=== PATIENT | female | born 1935 | race Caucasian/White ===

== ENCOUNTER 2020-09-28 06:22 | Emergency (ER) | payer MEDICARE ==
[~2020-09-28] VITALS: Ht 160 cm; Wt 65.2 kg
[~2020-09-28 06:22] MED LIST: APIX5TAB PO; ASCO500T9 PO; ASPI-650 PO; CEFD300C37 PO; DIGO250T3 PO; DOXY100T23 PO; FURO40TA6 PO; HYDR25TA6 PO; LEVO75TA5 PO; MELO15TA24 PO; METO50TA82 PO; POTA20TA14 PO; POTA20TA6 PO; RAMI5CAP57 PO; SIMV10TA18 PO; THIA100T67 PO
--- NOTE | 2020-09-28 06:59 | NUR ---
KEITH GIVEN REPORT
[2020-09-28] MEDS ORDERED: SODIUM CHLORIDE FLUSH 10ML SYR IVF ONE (07:00)
--- NOTE | 2020-09-28 07:17 | NUR ---
PT RECLINED IN BED, RESPIRATIONS EVEN AND UNLABORED ON RA. PT C/O SOB OFF AND ON ALL NIGHT, AND CONSTANT SINCE 0200 THIS AM. IV START, LABS DRAWN. PT PLACED ON NC FOR COMFORT AND 97% ON 2L NC VERSUS 91% ON RA.
[2020-09-28 07:49] LABS: BASOPHILS % (AUTO) 1 % (0-1); EOSINOPHILS % (AUTO) 1 % (1-7); LYMPHOCYTES % (AUTO) 24 % (22-44); MEAN CORPUSCULAR HEMOGLOBIN 30.2 pg (27.0-34.8); MEAN CORPUSCULAR HGB CONC 33.5 g/dL (32.4-35.8); MEAN PLATELET VOLUME 8.8 fL (7.4-10.4); MONOCYTES % (AUTO) 5 % (2-9); NEUTROPHILS % (AUTO) 69 % (42-75); PLATELET COUNT 189 x10^3/uL (130-400); RED CELL DISTRIBUTION WIDTH 13.8 % (9.6-15.2)
[2020-09-28 07:50] LABS: MD NO
[2020-09-28 08:01] LABS: ALANINE AMINOTRANSFERASE 39 U/L (12-78); ALBUMIN 3.6 g/dL (3.4-5.0); ANION GAP 7 mmol/L (5-15); CALCIUM 8.9 mg/dL (8.5-10.1); CHLORIDE 108 mmol/L (98-107); CREATININE 0.78 mg/dL (0.55-1.02)
[2020-09-28 08:05] LABS: ALKALINE PHOSPHATASE 51 U/L (45-117); BILIRUBIN,TOTAL 0.9 mg/dL (0.2-1.0); TOTAL PROTEIN 7.1 g/dL (6.4-8.2); TROPONIN I < 0.015 ng/mL (0.000-0.045)
--- NOTE | 2020-09-28 08:18 | NUR ---
PT LAYING BACK IN BED, NC IN PLACE. NO WOB NOTED. NAD NOTED. AWAITING FINAL LAB VALUE FOR RECHECK.
[2020-09-28] MEDS ORDERED: FUROSEMIDE 40 MG TABLET PO ONE (09:00)
[2020-09-28] MEDS ORDERED: METOPROLOL TARTRATE 50 MG TAB PO ONE (09:00)
[2020-09-28] MEDS ORDERED: METOPROLOL TARTRATE 50 MG TAB ONE (09:02)
[2020-09-28] MEDS ORDERED: FUROSEMIDE 40 MG TABLET ONE (09:02)
[2020-09-28] MEDS ORDERED: METOPROLOL TARTRATE 25 MG TAB ONE (09:03)
--- NOTE | 2020-09-28 09:10 | NUR ---
PLAN FOR PT TO RECEIVE PO MEDS THEN MONITOR X1 HOUR. PT AGREES WITH PLAN. DOES NOT WANT TO BE ADMITTED. NAD NOTED AT THIS TIME.
--- NOTE | 2020-09-28 09:45 | NUR ---
PT AMBULATES WELL TO BATHROOM INDEPENDENTLY. NAD NOTED AT THIS TIME.
--- NOTE | 2020-09-28 10:32 | NUR ---
DISCUSSION WITH DR JUNG REGARDING PT'S VS. DR JUNG TO CONSULT CARDIOLOGY REGARDING PT'S CURRENT STATE AND RX. ACCORDING TO DC PAPERWORK FROM PT'S LAST ADMISSION, SHE IS DUE TO A PSYCHOLOGY FELLOW VISIT. PT EDUCATED ON INCENTIVE SPIROMETER USE. NAD NOTED AT THIS TIME. RESPIRATIONS EVEN AND UNLABORED ON RA.
[2020-09-28 11:26] VITALS: BP 143/114
== END 2020-09-28 11:44 | disposition home or self-care (01) ==
LOC: ED 06:45
DX: I48.20 Chronic atrial fibrillation, unspecified (principal); I11.0 Hypertensive heart disease with heart failure; I50.9 Heart failure, unspecified; R06.00 Dyspnea, unspecified; J44.9 Chronic obstructive pulmonary disease, unspecified
CPT/HCPCS: 36415; 71045; 80053; 80162; 83880; 84484; 85025; 93005; 99285

== ENCOUNTER 2020-10-22 08:30 | Inpatient (IN) | payer MEDICARE ==
[~2020-10-22] VITALS: Ht 160 cm; Wt 63.3 kg
[~2020-10-22 08:30] MED LIST changes: +ASPI-1026 PO; -ASPI-650 PO
[2020-10-22] MEDS ORDERED: SODIUM CHLORIDE 0.9% 1,000 ML IV ONE (09:30)
[2020-10-22] MEDS ORDERED: METO50TA82 PO (09:47)
[2020-10-22] MEDS ORDERED: MAGN400T36 PO (09:51)
[2020-10-22] MEDS ORDERED: VIT D3 PO (09:51)
[2020-10-22] MEDS ORDERED: [UNRECOGNIZED DRUG - OTHER] PO (09:53)
[2020-10-22 09:59] LABS: ANION GAP 8 mmol/L (5-15); CALCIUM 8.8 mg/dL (8.5-10.1); CHLORIDE 107 mmol/L (98-107); CREATININE 0.79 mg/dL (0.55-1.02)
[2020-10-22] MEDS ORDERED: DIPHENHYDRAMINE 50 MG/ML, 1ML IVPush PRN (10:00)
[2020-10-22 10:40] VITALS: BP 144/86
[2020-10-22 10:42] LABS: BASOPHILS % (AUTO) 1 % (0-1); EOSINOPHILS % (AUTO) 2 % (1-7); LYMPHOCYTES % (AUTO) 34 % (22-44); MEAN CORPUSCULAR HEMOGLOBIN 30.1 pg (27.0-34.8); MEAN CORPUSCULAR HGB CONC 33.9 g/dL (32.4-35.8); MONOCYTES % (AUTO) 7 % (2-9); NEUTROPHILS % (AUTO) 55 % (42-75); PLATELET COUNT 181 x10^3/uL (130-400); RED BLOOD COUNT 4.49 x10^6/uL (3.82-5.3); RED CELL DISTRIBUTION WIDTH 14.7 % (9.6-15.2)
[2020-10-22 10:43] LABS: MD NO
[2020-10-22] MEDS ORDERED: PROPOFOL 10 MG/ML, 50ML ONE (10:53)
[2020-10-22] MEDS ORDERED: SODIUM CHLORIDE 0.9% 1,000 ML IV SCH (11:00)
[2020-10-22] MEDS ORDERED: DIPHENHYDRAMINE 50 MG/ML, 1ML ONE (11:08)
[2020-10-22] MEDS ORDERED: FENTANYL PF 100 MCG/2ML ONE (13:52)
[2020-10-22] MEDS ORDERED: MIDAZOLAM 1 MG/ML, 5ML ONE (13:52)
[2020-10-22] MEDS ORDERED: LIDOCAINE 2%, 20ML ONE (13:52)
[2020-10-22] MEDS ORDERED: VERAPAMIL 2.5 MG/ML, 2ML ONE (13:53)
[2020-10-22] MEDS ORDERED: HEPARIN 1,000 UNITS/ML, 10ML ONE (13:53)
[2020-10-22] MEDS ORDERED: FUROSEMIDE 40 MG/4 ML IV ONE (15:30)
[2020-10-22] MEDS ORDERED: FURO-92 PO (15:46)
[2020-10-22 19:22] VITALS: BP 151/91
[2020-10-22 19:52] VITALS: BP 132/81
[2020-10-22] MEDS: METOPROLOL TARTRATE 25 MG TAB PO SCH (21:19)
[2020-10-22] MEDS: SIMVASTATIN 10 MG TABLET PO SCH (21:19)
[2020-10-23] VITALS (10 sets, daily range): BP systolic 116–148; BP diastolic 58–95
[2020-10-23] MEDS: SODIUM CHLORIDE 0.9% 1,000 ML IV SCH ×2 (00:11→13:00)
[2020-10-23] MEDS: METOPROLOL TARTRATE 25 MG TAB PO SCH ×3 (04:54→21:30)
[2020-10-23] MEDS: LEVOTHYROXINE 75 MCG TABLET PO SCH ×2 (05:35→16:18)
[2020-10-23] MEDS: POTASSIUM CHLORIDE 20 MEQ PACKET PO SCH ×2 (08:00→16:18)
[2020-10-23] MEDS ORDERED: FUROSEMIDE 40 MG TABLET PO SCH (09:00)
[2020-10-23] MEDS: MELOXICAM 15 MG TABLET PO SCH (09:05)
[2020-10-23] MEDS: DIGOXIN 0.25 MG TABLET PO SCH (09:07)
[2020-10-23] MEDS: MAGNESIUM OXIDE 400 MG TABLET PO SCH (09:07)
[2020-10-23] MEDS: RAMIPRIL 5 MG CAP PO SCH (09:07)
[2020-10-23] MEDS ORDERED: FENTANYL PF 100 MCG/2ML ONE (11:44)
[2020-10-23] MEDS ORDERED: MIDAZOLAM 1 MG/ML, 2ML ONE (11:44)
[2020-10-23] MEDS ORDERED: PROPOFOL 10 MG/ML, 20ML ONE (12:13)
[2020-10-23] MEDS ORDERED: ATROPINE SYRINGE 0.1 MG/ML, 10ML IVPush PRN (21:30)
[2020-10-23] MEDS: SIMVASTATIN 10 MG TABLET PO SCH (21:47)
[2020-10-24 04:29] LABS: BASOPHILS % (AUTO) 1 % (0-1); EOSINOPHILS % (AUTO) 3 % (1-7); LYMPHOCYTES % (AUTO) 38 % (22-44); MEAN CORPUSCULAR HEMOGLOBIN 30.6 pg (27.0-34.8); MEAN CORPUSCULAR HGB CONC 34.9 g/dL (32.4-35.8); MEAN PLATELET VOLUME 9.3 fL (7.4-10.4); MONOCYTES % (AUTO) 10 % (2-9); NEUTROPHILS % (AUTO) 49 % (42-75); PLATELET COUNT 150 x10^3/uL (130-400); RED CELL DISTRIBUTION WIDTH 14.4 % (9.6-15.2)
[2020-10-24 04:30] LABS: MD NO
[2020-10-24 04:41] LABS: ANION GAP 8 mmol/L (5-15); CALCIUM 8.6 mg/dL (8.5-10.1); CHLORIDE 109 mmol/L (98-107); CREATININE 0.65 mg/dL (0.55-1.02)
[2020-10-24] MEDS: METOPROLOL TARTRATE 25 MG TAB PO SCH (04:47)
[2020-10-24] MEDS: LEVOTHYROXINE 75 MCG TABLET PO SCH (05:32)
[2020-10-24 06:35] VITALS: BP 156/84
[2020-10-24] MEDS: MELOXICAM 15 MG TABLET PO SCH (08:25)
[2020-10-24] MEDS: RAMIPRIL 5 MG CAP PO SCH (08:25)
[2020-10-24] MEDS: MAGNESIUM OXIDE 400 MG TABLET PO SCH (08:25)
[2020-10-24] MEDS ORDERED: POTASSIUM CHLORIDE 20 MEQ TAB.ER.PRT PO ONE (08:30)
[2020-10-24] MEDS: METOPROLOL TARTRATE 50 MG TAB PO SCH ×2 (09:22→21:34)
[2020-10-24] MEDS: POTASSIUM CHLORIDE 20 MEQ PACKET PO SCH (09:22)
[2020-10-24] MEDS: FUROSEMIDE 40 MG TABLET PO SCH (09:22)
[2020-10-24] MEDS: DIGOXIN 0.25 MG TABLET PO SCH (09:23)
[2020-10-24 12:17] LABS: T4 (THYROXINE) 10.6 mcg/dL (4.8-13.9)
[2020-10-24 13:31] VITALS: BP 130/80
[2020-10-24 21:29] VITALS: BP 162/94
[2020-10-24] MEDS: SIMVASTATIN 10 MG TABLET PO SCH (21:34)
[2020-10-25 02:45] VITALS: BP 155/69
[2020-10-25 05:57] LABS: BASOPHILS % (AUTO) 1 % (0-1); EOSINOPHILS % (AUTO) 3 % (1-7); LYMPHOCYTES % (AUTO) 38 % (22-44); MEAN CORPUSCULAR HEMOGLOBIN 30.6 pg (27.0-34.8); MEAN CORPUSCULAR HGB CONC 34.9 g/dL (32.4-35.8); MEAN PLATELET VOLUME 9.9 fL (7.4-10.4); MONOCYTES % (AUTO) 8 % (2-9); NEUTROPHILS % (AUTO) 50 % (42-75); PLATELET COUNT 166 x10^3/uL (130-400); RED BLOOD COUNT 4.48 x10^6/uL (3.82-5.3); RED CELL DISTRIBUTION WIDTH 14.4 % (9.6-15.2)
[2020-10-25 06:05] LABS: ANION GAP 9 mmol/L (5-15); CALCIUM 8.9 mg/dL (8.5-10.1); CHLORIDE 109 mmol/L (98-107)
[2020-10-25] MEDS: LEVOTHYROXINE 75 MCG TABLET PO SCH (06:06)
[2020-10-25 06:15] LABS: MD NO
[2020-10-25 06:50] VITALS: BP 158/103
[2020-10-25] MEDS ORDERED: MAGNESIUM SULFATE PMX 2GM/50ML 50 ML IV ONE (07:30)
[2020-10-25] MEDS ORDERED: POTASSIUM CHLORIDE 20 MEQ TAB.ER.PRT PO ONE (07:30)
[2020-10-25] MEDS: DIGOXIN 0.25 MG TABLET PO SCH (08:50)
[2020-10-25] MEDS: MAGNESIUM OXIDE 400 MG TABLET PO SCH (08:51)
[2020-10-25] MEDS: MELOXICAM 15 MG TABLET PO SCH (08:51)
[2020-10-25] MEDS: METOPROLOL TARTRATE 50 MG TAB PO SCH ×2 (08:51→20:08)
[2020-10-25] MEDS: FUROSEMIDE 40 MG TABLET PO SCH (08:51)
[2020-10-25] MEDS: POTASSIUM CHLORIDE 20 MEQ PACKET PO SCH (08:57)
[2020-10-25] MEDS ORDERED: RAMIPRIL 5 MG CAP PO SCH (09:00)
[2020-10-25] MEDS ORDERED: ONDANSETRON 2MG/ML, 2ML IVPush PRN (11:00)
[2020-10-25 12:15] VITALS: BP 121/79
[2020-10-25 18:14] VITALS: BP 157/105
[2020-10-25] MEDS: SIMVASTATIN 10 MG TABLET PO SCH (20:08)
[2020-10-25 22:29] LABS: MICROSCOPIC NOT IND
[2020-10-26 01:01] VITALS: BP 130/91
[2020-10-26] MEDS: LEVOTHYROXINE 75 MCG TABLET PO SCH (05:19)
[2020-10-26 06:00] LABS: ANION GAP 5 mmol/L (5-15); CALCIUM 8.9 mg/dL (8.5-10.1); CHLORIDE 108 mmol/L (98-107)
[2020-10-26 06:08] LABS: CREATININE 0.67 mg/dL (0.55-1.02)
[2020-10-26 06:50] VITALS: BP 156/94
[2020-10-26] MEDS ORDERED: POTASSIUM CHLORIDE 20 MEQ PACKET PO SCH (08:00)
[2020-10-26] MEDS: DIGOXIN 0.25 MG TABLET PO SCH (08:01)
[2020-10-26] MEDS ORDERED: RAMIPRIL 5 MG CAP PO SCH (09:00)
[2020-10-26] MEDS ORDERED: METOPROLOL TARTRATE 25 MG TAB PO SCH (09:00)
[2020-10-26] MEDS ORDERED: SPIRONOLACTONE 25 MG TABLET PO SCH (09:00)
[2020-10-26] MEDS: MAGNESIUM OXIDE 400 MG TABLET PO SCH (09:50)
[2020-10-26] MEDS: MELOXICAM 15 MG TABLET PO SCH (09:50)
[2020-10-26] MEDS: FUROSEMIDE 40 MG TABLET PO SCH (09:51)
[2020-10-26] MEDS ORDERED: PROPOFOL 10 MG/ML, 20ML ONE (12:18)
[2020-10-26 14:15] VITALS: BP 141/92
[2020-10-26] MEDS ORDERED: METO25TA35 PO (15:09)
[2020-10-26] MEDS ORDERED: RAMI10CA59 PO (15:09)
[2020-10-26] MEDS ORDERED: FURO40TA6 PO (15:09)
[2020-10-26] MEDS ORDERED: SPIR25TA PO (15:09)
[2020-10-27] MEDS ORDERED: FUROSEMIDE 40 MG TABLET PO SCH (09:00)
== END 2020-10-26 17:33 | disposition home or self-care (01) | DRG 286 ==
LOC: CACL 08:30 → 4NW 17:58 → CACL 20:40 → 4NW 20:41 → INTOOBSV 20:41 → OBSVTOIN 10-23 11:19 → 5SO 10-23 15:28
PROVIDERS: ADMIT Internal Medicine Cardiovascular Disease; ATTEND Internal Medicine Cardiovascular Disease
PROC: 4A023N8 Measurement of Cardiac Sampling and Pressure, Bilateral, Percutaneous Approach (ICD-10-PCS; 2020-10-22)
PROC: B2111ZZ Fluoroscopy of Multiple Coronary Arteries using Low Osmolar Contrast (ICD-10-PCS; 2020-10-22)
PROC: B2151ZZ Fluoroscopy of Left Heart using Low Osmolar Contrast (ICD-10-PCS; 2020-10-22)
PROC: 0D758ZZ Dilation of Esophagus, Via Natural or Artificial Opening Endoscopic (ICD-10-PCS; principal; 2020-10-23 11:30)
DX: I11.0 Hypertensive heart disease with heart failure (principal); U07.1 COVID-19; D68.69 Other thrombophilia; J44.0 Chronic obstructive pulmonary disease with (acute) lower respiratory infection; I48.20 Chronic atrial fibrillation, unspecified; K22.2 Esophageal obstruction; Z96.612 Presence of left artificial shoulder joint; Z96.611 Presence of right artificial shoulder joint; R13.14 Dysphagia, pharyngoesophageal phase; R13.13 Dysphagia, pharyngeal phase; I50.43 Acute on chronic combined systolic (congestive) and diastolic (congestive) heart failure; I34.0 Nonrheumatic mitral (valve) insufficiency; I25.10 Atherosclerotic heart disease of native coronary artery without angina pectoris; E87.6 Hypokalemia; E78.5 Hyperlipidemia, unspecified; E03.9 Hypothyroidism, unspecified; Z87.891 Personal history of nicotine dependence; Z90.710 Acquired absence of both cervix and uterus; Z87.01 Personal history of pneumonia (recurrent); Z79.899 Other long term (current) drug therapy; Z88.8 Allergy status to other drugs, medicaments and biological substances
CPT/HCPCS: 36415; 80048; 81003; 83880; 84436; 84481; 85025; 87635; 93308; 93312; 93321; 93325; 93460; 99156; 99157; C1760; C1769; C1894; G0378; J1644; J1940; J2250; J2704; J3010; J1200; J3475; J7030; Q9967; U0003

== ENCOUNTER 2020-10-31 09:46 | Emergency (ER) | payer MEDICARE ==
[~2020-10-31] VITALS: Ht 160 cm; Wt 62.6 kg
[~2020-10-31 09:46] MED LIST changes: +FURO-92 PO; +MAGN400T36 PO; +METO25TA35 PO; +RAMI10CA59 PO; +SPIR25TA PO; +VIT D3 PO; +[UNRECOGNIZED DRUG - OTHER] PO
--- NOTE | 2020-10-31 10:22 | NUR ---
This pt was d/c'd from a "3-4 day hospital stay a couple weeks ago." Pt "has leaky heart valves" and diagnosed with afib a couple months ago. Pt presents to the ER because she was told by her childcare worker told her "you need to go to the ER if you're dizzy." Pt had 1 episode of dizziness that lasted 15 minutes yesterday. Today the dizziness was more presistant and "I can't focus my eyes." Pt is afib on the monitor, denies any associated s/sx aside from dizziness. Pt is on a blood thinner. But she doesn't know when she went in to afib. Visitor states "we were under the impression that she's always in afib." Pt is waiting for heart sx.
[2020-10-31 11:29] LABS: BASOPHILS % (AUTO) 1 % (0-1); EOSINOPHILS % (AUTO) 2 % (1-7); LYMPHOCYTES % (AUTO) 40 % (22-44); MEAN CORPUSCULAR HEMOGLOBIN 30.4 pg (27.0-34.8); MEAN PLATELET VOLUME 9.6 fL (7.4-10.4); MONOCYTES % (AUTO) 7 % (2-9); NEUTROPHILS % (AUTO) 49 % (42-75); PLATELET COUNT 258 x10^3/uL (130-400); RED BLOOD COUNT 5.11 x10^6/uL (3.82-5.3); RED CELL DISTRIBUTION WIDTH 14.9 % (9.6-15.2)
[2020-10-31] MEDS ORDERED: MECLIZINE CHEWABLE 25 MG TAB PO ONE (11:30)
[2020-10-31 11:33] LABS: ANION GAP 4 mmol/L (5-15); CALCIUM 9.7 mg/dL (8.5-10.1); CHLORIDE 104 mmol/L (98-107); CREATININE 0.84 mg/dL (0.55-1.02)
[2020-10-31 11:38] LABS: MD NO
[2020-10-31] MEDS ORDERED: MECLIZINE CHEWABLE 25 MG TAB ONE (11:42)
[2020-10-31 13:16] VITALS: BP 105/79
--- NOTE | 2020-10-31 13:16 | NUR ---
MD Main back to bedside to update pt on POC.
== END 2020-10-31 13:49 | disposition home or self-care (01) ==
LOC: ED 10:31
DX: H81.13 Benign paroxysmal vertigo, bilateral (principal); I48.91 Unspecified atrial fibrillation; R00.2 Palpitations; R51.9 Headache, unspecified; I11.0 Hypertensive heart disease with heart failure; I50.9 Heart failure, unspecified; I44.7 Left bundle-branch block, unspecified
CPT/HCPCS: 36415; 70450; 80048; 82040; 85025; 93005; 99285

== ENCOUNTER → 2020-11-23 | Outpatient (CLI) | payer MEDICARE | END | disposition home or self-care (01) | LOC: STAR 12:35 | PROVIDERS: ATTEND Anesthesiology | DX: Z20.822 Contact with and (suspected) exposure to COVID-19 (principal) | CPT/HCPCS: U0003 ==